=== PATIENT | male | born 1990 | race Caucasian/White ===

== ENCOUNTER 2017-06-19 01:50 | Emergency (ER) | payer BC ==
[~2017-06-19] VITALS: Ht 172.7 cm; Wt 110.9 kg
[2017-06-19 02:00] VITALS: TEMP 36.5; Ht 172.7 cm; Wt 110.9 kg
[2017-06-19] MEDS ORDERED: KETOROLAC TROMETHAMINE 30 MG/ML VIAL IV STA (02:13)
[2017-06-19] MEDS ORDERED: ONDANSETRON INJ 2 MG/ML 2 ML VIAL IV STA (02:13)
[2017-06-19] MEDS ORDERED: HYDROmorphone INJ 1 MG/ML SYR IV STA (02:13)
[2017-06-19] MEDS ORDERED: SODIUM CHLORIDE 0.9% 1000ML 1,000 ML IV ONE (02:15)
[2017-06-19 02:23] LABS: BASO % 0.3 %; BASO ABS # 0.02 K/uL (0-0.2); COMPLETE YES; EOS % 6.1 %; HEMATOCRIT 41.2 % (42-52); IG% 0.1 %; LYMPH % 28.4 %; LYMPH ABS # 2.24 K/uL (1.2-3.4); MEAN CELL VOLUME 85.5 fL (80-100); MEAN CORPUSCULAR HEMOGLOBIN 30.3 pg (25-34); MEAN CORPUSCULAR HGB CONC 35.4 g/dl (32-36); MEAN PLATELET VOLUME 10.3 fL (7.4-10.4); MONO % 10.1 %; PLATELET COUNT 254 K/uL (130-400); RED BLOOD COUNT 4.82 M/uL (4.7-6.1)
[2017-06-19 02:42] LABS: BUN/CREATININE RATIO 11.2 (10-20); CREATININE 1.5 mg/dl (0.60-1.40); POTASSIUM 4.3 mmol/L (3.5-5.1)
[2017-06-19 02:44] LABS: ALB/GLOB RATIO 1.2 (0.9-2)
[2017-06-19] MEDS ORDERED: ONDA4TAB10 SL (04:15)
[2017-06-19] MEDS ORDERED: OXYCODONE IR HOME PACK PO ONE (04:15)
[2017-06-19] MEDS ORDERED: OXYC1TAB3 PO (04:15)
[2017-06-19] MEDS ORDERED: ONDANSETRON HOME PACK 4MG OD TAB PO ONE (04:15)
[2017-06-19] MEDS ORDERED: TAMS0.4C38 PO (04:15)
[2017-06-19 04:33] VITALS: BP 108/65; PULSE 74; O2SAT 100
[2017-06-19 05:12] LABS: URINE APPEARANCE CLOUDY (CLEAR); URINE COLOR ORANGE; URINE EPITHELIAL CELL AUTO >30 /lpf (0-5); URINE NITRITE NEG (NEG); URINE SPECIFIC GRAVITY 1.033 (1.000-1.030); UROBILINOGEN NEG (NEG); ZZUR CULT IF INDIC CLEAN CATCH NO
[2017-06-19 05:24] LABS: MANUAL MICROSCOPIC REQUIRED? NO; REVIEW REQ? YES
[2017-06-19 05:25] LABS: URINE BILIRUBIN NEG (NEG)
--- NOTE | 2017-06-19 06:50 | DIAGNOSTIC IMAGING REPORT ---
CT SCAN OF THE ABDOMEN AND PELVIS WITHOUT CONTRAST CLINICAL HISTORY: Right flank pain COMPARISON STUDY: No previous studies for comparison. TECHNIQUE: CT scan of the abdomen and pelvis was performed from the lung bases to the proximal femurs. Images are reviewed in the axial, sagittal, and coronal planes. IV contrast was not administered for this examination. A dose lowering technique was utilized adhering to the principles of ALARA. CT DOSE: 804.65 mGy.cm FINDINGS: Lower chest: There are minimal dependent atelectatic changes. Liver: The unenhanced liver is normal in size, contour, and attenuation. There is no intrahepatic biliary ductal dilatation. Gallbladder: Unremarkable. Spleen: Normal in size and attenuation. Pancreas: Unremarkable. Adrenal glands: Unremarkable. Kidneys: No renal calculi are visualized. There is right-sided hydronephrosis and right-sided perinephric stranding. There is a 2.5 mm proximal right ureteral calculus. No bladder calculi are visualized. Bowel: There are no transition zones indicate bowel obstruction. There is no acute diverticulitis. The appendix appears normal. Peritoneum: There is no intraperitoneal free air or abdominal ascites. Vasculature: The abdominal aorta is normal in course and caliber. Adenopathy: None. Pelvic viscera: The bladder, and pelvic viscera are unremarkable. Skeletal structures: No destructive osseous lesions are seen. IMPRESSION: 2.5 mm proximal right ureteral calculus at the L3 level with secondary obstructive changes Electronically signed by: Young Arroyo M.D. 06/19/2017 6:49 AM Dictated Date/Time: 06/19/2017 6:47 AM
--- NOTE | 2017-06-19 14:18 | Pharmacy Progress Note ---
ED Pharmacist Progress Note Date of Service: Jun 19, 2017. Received phone call from pharmacist, Ilan, at [facility] in [place]. He states the patient contacted him and wanted the Rx for Oxy IR sent to [facility] in [place] instead. Ilan stated he cancelled the Rx for Oxy IR there and wanted to know if we could send a new electronic Rx to [facility]. I stated Stiven is not working until this evening and we do not usually send a second electronic Rx. I then contacted the patient Chi ([phone]) to explain that the Rx for Oxy IR could not be sent to [facility] today, however we might be able to give a written Rx for Oxy IR if he returned to the hospital however I could not guarantee that this would be done without first talking with Stiven Hernandez. The patient stated he is doing well and has not needed any of the Oxy IR from the homepack he was given on discharge. He stated he will contact Stiven this evening if he feels he needs to have the Rx for Oxy IR filled. I stated I would place a message in Stiven' mailbox so that he would be aware of the situation should he need an Rx in the near future.
--- NOTE | 2017-06-19 23:27 | EMERGENCY ROOM VISIT NOTE ---
History First contact with patient: 02:11 Chief Complaint: FLANK PAIN Stated Complaint: SEVERE RT FLANK PAIN,LWR ABD PAIN,N/V,TESTICLE ELIEL History of Present Illness The patient is a 26 year old male who presents to the Emergency Room with complaints of acute onset severe right flank pain that began about one hour ago. The pain woke the patient from sleep and he states the pain does radiate into his right groin. He is nauseated with vomiting. He has not had diarrhea or constipation. He has not urinated since the onset of pain. He is not experiencing chest pain, chest tightness, or shortness of breath. No other abdominal pain. He does not report a history of abdominal surgery in the past. No history of kidney stones. He has not taken anything [id number] for his discomfort. He rates his discomfort a colicky 10/10 at worst. Review of Systems More than 10 systems were reviewed and otherwise negative with the exception of history of present illness. Past Medical/Surgical History No chronic medical disease Family History No pertinent family history Social History Smoking Status: Never Smoker Housing Status: lives with family Current/Historical Medications Scheduled Ondasetron Odt (Zofran Odt), 4 MG SL Q6H Oxycodone Immediate Rel Tab (Roxicodone Ir), 1-2 TAB PO Q4H Tamsulosin Hcl (Flomax), 0.4 MG PO DAILY Physical Exam Vital Signs Date Time Temp Pulse Resp B/P (MAP) Pulse Ox O2 Delivery O2 Flow Rate FiO2 06/19/17 04:33 74 18 108/65 100 Room Air 06/19/17 03:40 69 18 144/72 99 Room Air 06/19/17 02:00 36.5 72 16 152/78 96 Room Air Pain Rating (0-10): 0 Physical Exam VITALS: Vitals are noted on the nurse's note and reviewed by myself. Vital signs stable. GENERAL: Well-developed, well-nourished, white male, who appears in moderate to severe discomfort secondary to his stated complaint. He is holding his right side with his right hand. He is pacing in the emergency department room. He is cooperative. HEART: Regular rate and rhythm without murmurs gallops or rubs. LUNGS: Clear to auscultation bilaterally without wheezes, rales or rhonchi. No retractions or accessory muscle use. ABDOMEN: Positive normal bowel sounds x 4. Soft, nontender, without masses or organomegaly. No guarding or rebound tenderness. No CVA tenderness. MUSCULOSKELETAL: No muscle atrophy, erythema, or edema noted. Full range of motion without joint tenderness in all extremities. Medical Decision & Procedures ER Provider Diagnostic Interpretation: CT SCAN OF THE ABDOMEN AND PELVIS WITHOUT CONTRAST CLINICAL HISTORY: Right flank pain COMPARISON STUDY: No previous studies for comparison. TECHNIQUE: CT scan of the abdomen and pelvis was performed from the lung bases to the proximal femurs. Images are reviewed in the axial, sagittal, and coronal planes. IV contrast was not administered for this examination. A dose lowering technique was utilized adhering to the principles of ALARA. CT DOSE: 804.65 mGy.cm FINDINGS: Lower chest: There are minimal dependent atelectatic changes. Liver: The unenhanced liver is normal in size, contour, and attenuation. There is no intrahepatic biliary ductal dilatation. Gallbladder: Unremarkable. Spleen: Normal in size and attenuation. Pancreas: Unremarkable. Adrenal glands: Unremarkable. Kidneys: No renal calculi are visualized. There is right-sided hydronephrosis and right-sided perinephric stranding. There is a 2.5 mm proximal right ureteral calculus. No bladder calculi are visualized. Bowel: There are no transition zones indicate bowel obstruction. There is no acute diverticulitis. The appendix appears normal. Peritoneum: There is no intraperitoneal free air or abdominal ascites. Vasculature: The abdominal aorta is normal in course and caliber. Adenopathy: None. Pelvic viscera: The bladder, and pelvic viscera are unremarkable. Skeletal structures: No destructive osseous lesions are seen. IMPRESSION: 2.5 mm proximal right ureteral calculus at the L3 level with secondary obstructive changes Laboratory Results 06/19/17 02:10 Red Blood Count 4.82, Mean Corpuscular Volume 85.5, Mean Corpuscular Hemoglobin 30.3, Mean Corpuscular Hemoglobin Concent 35.4, Mean Platelet Volume 10.3, Neutrophils (%) (Auto) 55.0, Lymphocytes (%) (Auto) 28.4, Monocytes (%) (Auto) 10.1, Eosinophils (%) (Auto) 6.1, Basophils (%) (Auto) 0.3, Neutrophils # (Auto ) 4.35, Lymphocytes # (Auto) 2.24, Monocytes # (Auto) 0.80, Eosinophils # (Auto ) 0.48, Basophils # (Auto) 0.02 06/19/17 02:10 Test 06/19/17 02:10 06/19/17 03:47 White Blood Count 7.90 K/uL (4.8-10.8) Red Blood Count 4.82 M/uL (4.7-6.1) Hemoglobin 14.6 g/dL (14.0-18.0) Hematocrit 41.2 % (42-52) Mean Corpuscular Volume 85.5 fL (80-100) Mean Corpuscular Hemoglobin 30.3 pg (25-34) Mean Corpuscular Hemoglobin Concent 35.4 g/dl (32-36) Platelet Count 254 K/uL (130-400) Mean Platelet Volume 10.3 fL (7.4-10.4) Neutrophils (%) (Auto) 55.0 % Lymphocytes (%) (Auto) 28.4 % Monocytes (%) (Auto) 10.1 % Eosinophils (%) (Auto) 6.1 % Basophils (%) (Auto) 0.3 % Neutrophils # (Auto) 4.35 K/uL (1.4-6.5) Lymphocytes # (Auto) 2.24 K/uL (1.2-3.4) Monocytes # (Auto) 0.80 K/uL (0.11-0.59) Eosinophils # (Auto) 0.48 K/uL (0-0.5) Basophils # (Auto) 0.02 K/uL (0-0.2) RDW Standard Deviation 38.5 fL (36.4-46.3) RDW Coefficient of Variation 12.3 % (11.5-14.5) Immature Granulocyte % (Auto) 0.1 % Immature Granulocyte # (Auto) 0.01 K/uL (0.00-0.02) Anion Gap 5.0 mmol/L (3-11) Est Creatinine Clear Calc Drug Dose 89.3 ml/min Estimated GFR () 72.9 Estimated GFR (Non- 62.9 BUN/Creatinine Ratio 11.2 (10-20) Calcium Level 9.0 mg/dl (8.5-10.1) Total Bilirubin 0.4 mg/dl (0.2-1) Aspartate Amino Transf (AST/SGOT) 31 U/L (15-37) Alanine Aminotransferase (ALT/SGPT) 57 U/L (12-78) Alkaline Phosphatase 80 U/L (45-117) Total Protein 7.3 gm/dl (6.4-8.2) Albumin 4.0 gm/dl (3.4-5.0) Globulin 3.3 gm/dl (2.5-4.0) Albumin/Globulin Ratio 1.2 (0.9-2) Lipase 90 U/L (73-393) Urine Color ORANGE Urine Appearance CLOUDY (CLEAR) Urine pH 7.0 (4.5-7.5) Urine Specific [place] 1.033 (1.000-1.030) Urine Protein 1+ (NEG) Urine Glucose (UA) NEG (NEG) Urine Ketones TRACE (NEG) Urine Occult Blood 3+ (NEG) Urine Nitrite NEG (NEG) Urine Bilirubin NEG (NEG) Urine Urobilinogen NEG (NEG) Urine Leukocyte Esterase SMALL (NEG) Urine WBC (Auto) 5-10 /hpf (0-5) Urine RBC (Auto) >30 /hpf (0-4) Urine Hyaline Casts (Auto) 1-5 /lpf (0-5) Urine Epithelial Cells (Auto) >30 /lpf (0-5) Urine Bacteria (Auto) NEG (NEG) Urine Renal Epithelial Cells /lpf (0-5) Medications Administered Medications (Trade) Dose Ordered Sig/Hira Route Start Time Stop Time Status Last Admin Dose Admin Hydromorphone HCl (Dilaudid Inj) 1 mg NOW STAT IV 06/19/17 02:13 06/19/17 02:15 DC 06/19/17 02:20 1 MG Sodium Chloride 1,000 ml @ 999 mls/hr Q1H1M ONCE IV 06/19/17 02:15 06/19/17 03:15 DC 06/19/17 02:22 999 MLS/HR Ketorolac Tromethamine (Toradol Inj) 30 mg NOW STAT IV 06/19/17 02:13 06/19/17 02:15 DC 06/19/17 02:22 30 MG Ondansetron HCl (Zofran Inj) 4 mg NOW STAT IV 06/19/17 02:13 06/19/17 02:15 DC 06/19/17 02:23 4 MG Oxycodone HCl (Roxicodone Immediate Rel 5MG Home Pack) 1 homepack UD ONCE PO 06/19/17 04:15 06/19/17 04:16 DC 06/19/17 04:28 1 HOMEPACK Ondansetron HCl (ZOFRAN ODT 4MG Home Pack) 1 homepack UD ONCE PO 06/19/17 04:15 06/19/17 04:16 DC 06/19/17 04:27 1 HOMEPACK ED Course Physical exam and history were performed. Nursing notes, EMR, and Medication List were personally reviewed. Patient appears to have significant right flank pain that started about one hour prior to arrival. On examination the patient appears extremely uncomfortable. IV access was established and labs were obtained. Patient was hydrated and medicated as above. CT scan was performed. Urine was collected and was with gross hematuria. The patient's blood work is as above and was reviewed. He does not have significant elevated white blood cell count, gross anemia, bandemia, or significant electrolyte imbalance. His urine is with blood but no obvious infection with culture pending. CT scan does confirm a 2.5 mm stone in the right ureter. This does correlate with the patient's discomfort. On reevaluation the patient felt much better after analgesics and fluids. Discussed options of care, and he does feel comfortable with discharge home. The patient will be given a course of oxycodone, Flomax, and Zofran. He will be given information to follow with urology. He was otherwise invited back to ER with any new, worsening, or concerning symptoms. The chart was completed utilizing [employer] Speech Voice Recognition Software. Grammatical errors, random word insertions, pronoun errors, and incomplete sentences are an occasional consequence of this system due to software limitations, ambient noise, and hardware issues. Any formal questions or concerns about the content, text, or information contained within the body of this dictation should be directly addressed to the provider for clarification. . Medical Decision Differential diagnosis: Etiologies such as renal colic, appendicitis, diverticulitis, mesenteric ischemia, aortic pathology, infections, inflammatory bowel disease, PUD, biliary pathology, UTI, as well as others were entertained. Blood Pressure Screening Blood pressure disposition: Elevated BP felt to be situational Impression Primary Impression: Ureteral calculus, right Departure Information Dispostion Home / Self-Care Condition GOOD Prescriptions Tamsulosin Hcl (FLOMAX) 0.4 Mg Cap 0.4 MG PO DAILY for 7 Days, #7 CAP Prov: Stiven Hernandez PA-C 06/19/17 Ondasetron Odt (ZOFRAN ODT) 4 Mg Tab 4 MG SL Q6H for Nausea, #12 TAB Prov: Stiven Hernandez PA-C 06/19/17 Oxycodone Immediate Rel Tab (ROXICODONE IR) 5 Mg Tab 1-2 TAB PO Q4H for Pain, #30 TAB Prov: Stiven Hernandez PA-C 06/19/17 Referrals Dale Nicole MD Forms HOME CARE DOCUMENTATION FORM, Work Instructions, Additional Instructions: Patient seen and evaluated today in the emergency department for medica care. Return to work on 06/24/2017. IMPORTANT VISIT INFORMATION Patient Instructions My [facility] Additional Instructions You were seen and evaluated today on an emergency basis only. This is not a substitute for, or an effort to provide, complete comprehensive medical care. It is not possible to recognize and treat all injuries or illnesses in a single emergency department visit. For this reason it is recommended that you followup with urology, Dr. Nicole's office, for ongoing care and evaluation. For baseline pain relief you may alternate ibuprofen and acetaminophen every 4 hours for pain control. Take 600 mg ibuprofen (Advil) and then 4 hours later take 1000 mg acetaminophen (Tylenol). Do not take more than 3000 mg acetaminophen in a single day. Oxycodone (OxyIR) 5mg: Take ONE or TWO pills every FOUR to SIX hours for breakthrough pain. Avoid alcohol, operating machinery or dangerous equipment, working on ladders or roofs, DRIVING, or situations where being under the influence may be dangerous. It is recommended to use an [id number] stool softener such as Colace, 100mg twice daily while taking this medication to avoid constipation. Zofran 1 tablet every 6 hrs as needed for nausea. Take Flomax daily Drink plenty of fluids and remain well hydrated You are welcome to return to the emergency department anytime with new, worsening, or concerning symptoms. Work Instructions Additional Work Instructions: Patient seen and evaluated today in the emergency department for medical care. Return to work on 06/24/2017.
== END 2017-06-19 04:30 | disposition home or self-care (01) ==
LOC: C.EDB 01:52
DX: N20.1 Calculus of ureter (principal)